=== PATIENT | female | born 1940 | race African-American/Black ===

== ENCOUNTER 2017-03-03 01:38 | Inpatient (IN) | payer BC, MEDICARE ==
[2017-03-03] VITALS (7 sets, daily range): BP systolic 90–132; BP diastolic 55–85
[~2017-03-03] VITALS: Ht 172.7 cm; Wt 135.6 kg
[~2017-03-03 01:38] MED LIST: ARMOUR THYROID120 MG PO; CLINDAMYCIN HC300 MG PO; COUMADIN10 MG PO; GLUCOPHAGE850 MG PO; K-DUR20 MEQ PO; LASIX40 MG PO; LYRICA150 MG PO; NUCYNTA50 MG PO; OXYCODONE HCL10 M1 PO; OXYCODONE HCL10 MG PO
[2017-03-03] MEDS ORDERED: DiphenhydrAMINE 50mg/ml Inj IVP ONE (02:00)
[2017-03-03] MEDS ORDERED: Morphine Sulfate 4mg/ml Inj IVP ONE ×2 (02:00→04:45)
[2017-03-03 02:30] LABS: BASOPHILS % (AUTO) 0.2 % (0.0-2.0); EOSINOPHILS % (AUTO) 0.1 % (0.0-3.0); MEAN CORPUSCULAR HEMOGLOBIN 24.5 PG (27.0-31.0); MEAN CORPUSCULAR VOLUME 82 FL (80-99); MONOCYTES % (AUTO) 5.4 % (1.0-10.0); NEUTROPHILS % (AUTO) 79.3 % (45.0-75.0); PLATELET COUNT 356 K/UL (150-450); RED CELL DISTRIBUTION WIDTH 16.7 % (11.6-14.8)
[2017-03-03 02:42] LABS: ALANINE AMINOTRANSFERASE 20 U/L (12-78); ALBUMIN/GLOBULIN RATIO 0.7 (1.0-2.7); ANION GAP 8 mmol/L (5-15); ASPARTATE AMINO TRANSFERASE 15 U/L (15-37); CALCIUM 10.4 MG/DL (8.5-10.1); CARBON DIOXIDE 29 MMOL/L (21-32); CHLORIDE 109 MMOL/L (98-107); CREATININE 1.1 MG/DL (0.55-1.30); INR 4.5 (0.9-1.1); LIPASE 130 U/L (73-393); POTASSIUM 4.2 MMOL/L (3.5-5.1); SODIUM 146 MMOL/L (136-145); TOTAL PROTEIN 6.8 G/DL (6.4-8.2)
--- NOTE | 2017-03-03 03:43 | Emergency Room Report ---
History of Present Illness General Chief Complaint: Abdominal Pain Source: Patient, Family Member Present Illness HPI 76-year-old female presents ED for evaluation. States that tonight she started having abdominal pain with vomiting and diarrhea. Started shortly after eating food. Pain is epigastric, sharp, 8/10, nonradiating. Also notes multiple episodes of vomiting with blood. Also complaining of diarrhea. Patient states she takes Coumadin. Denies any fevers or chills. Denies chest pain or shortness of breath. No aggravating relieving factors. Denies any other associated symptoms Allergies: Coded Allergies: ACETAMINOPHEN (Verified Allergy, Severe, ITCHING, 11/10/11) ASPIRIN (Verified Allergy, Severe, Rash, 11/10/11) DULOXETINE HCL (Verified Allergy, Severe, Rash, 11/10/11) HYDROCODONE BIT (Verified Allergy, Severe, ITCHING, 11/10/11) IBUPROFEN (Verified Allergy, Severe, SWELLING, 11/10/11) MORPHINE (Verified Allergy, Severe, ITCHING, 11/10/11) PENICILLINS (Verified Allergy, Severe, ANAPHYLAXIS, 11/10/11) PROPYLTHIOURACIL (Verified Allergy, Severe, Rash, 11/10/11) ISOSORBIDE (Verified Allergy, Intermediate, Rash, 05/10/12) COPIED FROM NONCODED SECTION "ISOSORDIL" LEVOFLOXACIN (Verified Allergy, Intermediate, Hives, 05/14/12) MOXIFLOXACIN (Verified Adverse Reaction, Severe, hives, hoarse voice, ) Hives right upper arm, hoarse voice upon first exposure, MD stopped immediately. Oral Benadryl administered, reversed reaction. LEVOTHYROXINE SOD *RETIRED-02/06/12 (Verified Adverse Reaction, TACHYCARDIA, 11/10/11) Uncoded Allergies: IV DYE, IODINE CONTAINING CONTRAST (Allergy, Severe, ANAPHYLAXIS, 11/10/11) Patient History Past Medical History: DM, HTN, asthma, COPD Past Surgical History: none Pertinent Family History: none Social History: Denies: smoking, alcohol use, drug use Last Menstrual Period: none Now: No Immunizations: UTD Reviewed Nursing Documentation: PMH: Agreed, PSxH: Agreed Nursing Documentation-PMH Hx Cardiac Problems: Yes - SUPERIOR VENA CAVA LIGATION Hx Hypertension: Yes Hx Asthma: Yes - ALLERGY/SEASONAL PER PATIENT Hx COPD: Yes - HX PE, MRSA Hx Diabetes: Yes - TAKING METFORMIN 850MG Q DAILY Hx Cancer: No Hx Gastrointestinal Problems: No Hx Peripheral Neuropathy: Yes Review of Systems All Other Systems: negative except mentioned in HPI Physical Exam Vital Signs Date Time Temp Pulse Resp B/P (MAP) Pulse Ox O2 Delivery O2 Flow Rate FiO2 03/03/17 01:40 98.4 110 18 127/85 92 Room Air Sp02 EP Interpretation: reviewed, normal General Appearance: alert, GCS 15, non-toxic, mild distress, obese Head: normocephalic, atraumatic Eyes: bilateral eye normal inspection, bilateral eye PERRL ENT: hearing grossly normal, normal pharynx, no angioedema, normal voice Neck: full range of motion, supple/symm/no masses Respiratory: chest non-tender, lungs clear, normal breath sounds, speaking full sentences Cardiovascular #1: regular rate, rhythm, no edema Cardiovascular #2: 2+ carotid (R), 2+ carotid (L), 2+ radial (R), 2+ radial (L) , 2+ dorsalis pedis (R), 2+ dorsalis pedis (L) Gastrointestinal: normal bowel sounds, soft, non-distended, no guarding, no rebound, tenderness - epigastric Rectal: deferred Genitourinary: normal inspection, no CVA tenderness Musculoskeletal: back normal, gait/station normal, normal range of motion, non- tender Neurologic: alert, oriented x3, responsive, motor strength/tone normal, sensory intact, speech normal Psychiatric: judgement/insight normal, memory normal, mood/affect normal, no suicidal/homicidal ideation Reflexes: 3+ bicep (R), 3+ bicep (L), 3+ tricep (R), 3+ tricep (L), 3+ knee (R) , 3+ knee (L) Skin: normal color, no rash, warm/dry, well hydrated Lymphatic: no adenopathy Medical Decision Making Diagnostic Impression: Primary Impression: Upper GI bleed ER Course Hospital Course 76-year-old F presents to ED with abdominal pain with diarrhea, vomiting blood Differential diagnoses include: UGIB, LGIB, hemorrhoids Clinical course Patient placed on stretcher. director business. After initial history and physical I ordered labs, IV fluids, pain meds, pepcid, zofran Labs - no leukocytosis, Hb/Hct stable. BUN elevated Case discussed with Dr. Blood and he agreed to accept the patient to his service for further care and support I feel this is a highly complex case requiring extensive working including EKG/ Rhythm strip, Xray/CT/US, Blood/urine lab work, repeat exams while in ED, and administration of strong opiates/narcotics for pain control, admission to hospital or close patient follow up. Diagnosis - UGIB Patient admitted to telemetry in serious condition Labs Test 03/03/17 02:00 White Blood Count 14.0 K/UL (4.8-10.8) Red Blood Count 4.40 M/UL (4.20-5.40) Hemoglobin 10.8 G/DL (12.0-16.0) Hematocrit 36.0 % (37.0-47.0) Mean Corpuscular Volume 82 FL (80-99) Mean Corpuscular Hemoglobin 24.5 PG (27.0-31.0) Mean Corpuscular Hemoglobin Concent 30.0 G/DL (32.0-36.0) Red Cell Distribution Width 16.7 % (11.6-14.8) Platelet Count 356 K/UL (150-450) Mean Platelet Volume 8.0 FL (6.5-10.1) Neutrophils (%) (Auto) 79.3 % (45.0-75.0) Lymphocytes (%) (Auto) 15.0 % (20.0-45.0) Monocytes (%) (Auto) 5.4 % (1.0-10.0) Eosinophils (%) (Auto) 0.1 % (0.0-3.0) Basophils (%) (Auto) 0.2 % (0.0-2.0) Prothrombin Time 48.0 SEC (9.30-11.50) Prothromb Time International Ratio 4.5 (0.9-1.1) Activated Partial Thromboplast Time 39 SEC (23-33) Sodium Level 146 MMOL/L (136-145) Potassium Level 4.2 MMOL/L (3.5-5.1) Chloride Level 109 MMOL/L (98-107) Carbon Dioxide Level 29 MMOL/L (21-32) Anion Gap 8 mmol/L (5-15) Blood Urea Nitrogen 27 mg/dL (7-18) Creatinine 1.1 MG/DL (0.55-1.30) Estimat Glomerular Filtration Rate mL/min (>60) Glucose Level 229 MG/DL (74-106) Calcium Level 10.4 MG/DL (8.5-10.1) Total Bilirubin 0.6 MG/DL (0.2-1.0) Aspartate Amino Transf (AST/SGOT) 15 U/L (15-37) Alanine Aminotransferase (ALT/SGPT) 20 U/L (12-78) Alkaline Phosphatase 69 U/L (46-116) Troponin I 0.005 ng/mL (0.000-0.056) Total Protein 6.8 G/DL (6.4-8.2) Albumin 2.9 G/DL (3.4-5.0) Globulin 3.9 g/dL Albumin/Globulin Ratio 0.7 (1.0-2.7) Lipase 130 U/L (73-393) Last Vital Signs Date Time Temp Pulse Resp B/P (MAP) Pulse Ox O2 Delivery O2 Flow Rate FiO2 03/03/17 01:40 98.4 110 18 127/85 92 Room Air Status: improved Disposition: ADMITTED INPATIENT Condition: Serious Referrals: NOT CHOSEN ROM/,REFERRING (PCP) DENISE ROJAS M.D. Mar 03, 2017 03:43
[2017-03-03 04:30] LABS: APPEARANCE,URINE CLEAR; KETONES,URINE 2+ (NEGATIVE); LEUKOCYTE ESTERASE ,URINE 1+ (NEGATIVE); NITRITE,URINE NEGATIVE (NEGATIVE); PH,URINE 5 (4.5-8.0); PROTEIN,URINE 1+ (NEGATIVE); UROBILINOGEN,URINE 4 MG/DL (0.0-1.0)
[2017-03-03 04:48] LABS: AMORPHOUS SEDIMENT,UR FEW /LPF; BACTERIA,URINE FEW /HPF; MUCUS,URINE FEW /LPF (NONE/OCC); SQUAMOUS EPITHELIAL CELL,UR FEW /LPF (NONE/OCC); WBC,URINE 0-2 /HPF (0 - 2)
--- NOTE | 2017-03-03 10:16 | General Progress Note ---
Assessment/Plan Assessment/Plan GI CONSULT Assessment - UGIB, small volume, possibly GERD or MWT - Abd pain, more on RUQ - coagulopathy/protein S/C deficiency - h/o multiple PE - Diarrhea - obesity - multiple drug allergies Rec - NPO - IVF - PPI - Stool eval - CT scan - pain control - antiemetics - hold coumadin - follow CBC Thank you Sammy Newby MD Subjective Allergies: Coded Allergies: ACETAMINOPHEN (Verified Allergy, Severe, ITCHING, 11/10/11) ASPIRIN (Verified Allergy, Severe, Rash, 11/10/11) DULOXETINE HCL (Verified Allergy, Severe, Rash, 11/10/11) HYDROCODONE BIT (Verified Allergy, Severe, ITCHING, 11/10/11) IBUPROFEN (Verified Allergy, Severe, SWELLING, 11/10/11) MORPHINE (Verified Allergy, Severe, ITCHING, 11/10/11) PENICILLINS (Verified Allergy, Severe, ANAPHYLAXIS, 11/10/11) PROPYLTHIOURACIL (Verified Allergy, Severe, Rash, 11/10/11) ISOSORBIDE (Verified Allergy, Intermediate, Rash, 05/10/12) COPIED FROM NONCODED SECTION "ISOSORDIL" LEVOFLOXACIN (Verified Allergy, Intermediate, Hives, 05/14/12) MOXIFLOXACIN (Verified Adverse Reaction, Severe, hives, hoarse voice, ) Hives right upper arm, hoarse voice upon first exposure, MD stopped immediately. Oral Benadryl administered, reversed reaction. LEVOTHYROXINE SOD *RETIRED-02/06/12 (Verified Adverse Reaction, TACHYCARDIA, 11/10/11) Uncoded Allergies: IV DYE, IODINE CONTAINING CONTRAST (Allergy, Severe, ANAPHYLAXIS, 11/10/11) Objective Last 24 Hour Vital Signs Date Time Temp Pulse Resp B/P (MAP) Pulse Ox O2 Delivery O2 Flow Rate FiO2 03/03/17 08:00 98.4 97 21 124/58 96 Nasal Cannula 2.0 03/03/17 08:00 97.2 84 18 132/70 92 Nasal Cannula 2.0 03/03/17 05:50 98.4 97 21 124/58 92 Nasal Cannula 2.0 03/03/17 03:50 98.4 95 17 109/55 90 Nasal Cannula 2.0 03/03/17 01:50 98.4 110 18 127/85 92 Room Air 03/03/17 01:40 98.4 110 18 127/85 92 Room Air Intake and Output 03/03/17 03/04/17 19:00 07:00 # Voids 1 Laboratory Tests 03/03/17 02:00: White Blood Count 14.0H, Red Blood Count 4.40, Hemoglobin 10.8L, Hematocrit 36.0L, Mean Corpuscular Volume 82, Mean Corpuscular Hemoglobin 24.5L, Mean Corpuscular Hemoglobin Concent 30.0L, Red Cell Distribution Width 16.7H, Platelet Count 356, Mean Platelet Volume 8.0, Neutrophils (%) (Auto) 79.3H, Lymphocytes (%) (Auto) 15.0L, Monocytes (%) (Auto) 5.4, Eosinophils (%) (Auto) 0.1, Basophils (%) (Auto) 0.2, Prothrombin Time 48.0H, Prothromb Time International Ratio 4.5H, Activated Partial Thromboplast Time 39H, Sodium Level 146H, Potassium Level 4.2, Chloride Level 109H, Carbon Dioxide Level 29, Anion Gap 8, Blood Urea Nitrogen 27H, Creatinine 1.1, Estimat Glomerular Filtration Rate , Glucose Level 229H, Calcium Level 10.4H, Total Bilirubin 0.6, Aspartate Amino Transf (AST/SGOT) 15, Alanine Aminotransferase (ALT/SGPT) 20, Alkaline Phosphatase 69, Troponin I 0.005, Total Protein 6.8, Albumin 2.9L, Globulin 3.9 , Albumin/Globulin Ratio 0.7L, Lipase 130 03/03/17 04:10: Urine Color Yellow, Urine Appearance Clear, Urine pH 5, Urine Specific Gray 1.015, Urine Protein 1+H, Urine Glucose (UA) Negative, Urine Ketones 2+H, Urine Occult Blood 2+H, Urine Nitrite Negative, Urine Bilirubin Negative, Urine Urobilinogen 4H, Urine Leukocyte Esterase 1+H, Urine RBC 2-4H, Urine WBC 0-2, Urine Squamous Epithelial Cells Few, Urine Amorphous Sediment FewH, Urine Bacteria Few, Urine Mucus FewH Height (Feet): 5 Height (Inches): 8.00 Weight (Pounds): 299 SAMMY NEWBY Mar 03, 2017 10:16
[2017-03-03] MEDS ORDERED: oxyCODONE 5mg IR tab ORAL PRN (10:45)
[2017-03-03] MEDS: Pantoprazole Inj IVP SCH (10:55)
[2017-03-03] MEDS: HYDROmorphone 1mg/ml Carpuject IVP PRN ×2 (11:26→14:15)
[2017-03-03] MEDS ORDERED: Potassium Chloride 10 MEQ in D5 1/2NS 1,000 ML IV SCH (11:30)
[2017-03-03] MEDS ORDERED: Albuterol 90mcg Inhaler 8gm INH PRN (11:30)
[2017-03-03] MEDS: D5 1/2NS w/KCL 10meq 1,000 ML IV SCH ×2 (13:18→19:19)
[2017-03-03] MEDS ORDERED: Phytonadione 10 mg/mL 1ml amp SUBQ ONE (14:00)
[2017-03-03 14:15] LABS: BASOPHILS % (AUTO) 0.2 % (0.0-2.0); EOSINOPHILS % (AUTO) 0.3 % (0.0-3.0); LYMPHOCYTES % (AUTO) 18.3 % (20.0-45.0); MEAN CORPUSCULAR HGB CONC 30.5 G/DL (32.0-36.0); MEAN CORPUSCULAR VOLUME 82 FL (80-99); MEAN PLATELET VOLUME 7.8 FL (6.5-10.1); MONOCYTES % (AUTO) 8.7 % (1.0-10.0); NEUTROPHILS % (AUTO) 72.5 % (45.0-75.0); PLATELET COUNT 248 K/UL (150-450); RED BLOOD COUNT 3.74 M/UL (4.20-5.40); RED CELL DISTRIBUTION WIDTH 16.9 % (11.6-14.8); WHITE BLOOD COUNT 9.8 K/UL (4.8-10.8)
[2017-03-03 14:31] LABS: INR 4.2 (0.9-1.1); PROTHROMBIN TIME 44.5 SEC (9.30-11.50)
[2017-03-03] MEDS: Advair 100/50 Inhaler - 14 dose INH SCH (15:18)
[2017-03-03] MEDS ORDERED: Montelukast 10mg tablet ORAL SCH (16:30)
--- NOTE | 2017-03-03 17:13 | Cardiology Report ---
APPROVED REPORT EKG Measurement Heart [id number] Normal sinus rhythm Left axis deviation Inferior infarct, age undetermined Anterior infarct, age undetermined Abnormal ECG
[2017-03-03] MEDS ORDERED: LORazepam 20 MG in NS 90 ML IV PRN (18:00)
[2017-03-03] MEDS ORDERED: LORazepam Inj 2mg/ml 1ml IVP PRN (18:15)
[2017-03-03] MEDS ORDERED: Hydromorphone 0.5mg/0.5ml inj IVP PRN (18:30)
[2017-03-04] VITALS (10 sets, daily range): BP systolic 73–159; BP diastolic 41–78
[2017-03-04] MEDS: D5 1/2NS w/KCL 10meq 1,000 ML IV SCH ×2 (03:15→11:15)
--- NOTE | 2017-03-04 08:36 | Consultation ---
History of Present Illness General Date patient seen: Mar 04, 2017 Chief Complaint: Abdominal Pain Present Illness Allergies: Coded Allergies: ACETAMINOPHEN (Verified Allergy, Severe, ITCHING, 11/10/11) ASPIRIN (Verified Allergy, Severe, Rash, 11/10/11) DULOXETINE HCL (Verified Allergy, Severe, Rash, 11/10/11) HYDROCODONE BIT (Verified Allergy, Severe, ITCHING, 11/10/11) IBUPROFEN (Verified Allergy, Severe, SWELLING, 11/10/11) MORPHINE (Verified Allergy, Severe, ITCHING, 11/10/11) PENICILLINS (Verified Allergy, Severe, ANAPHYLAXIS, 11/10/11) PROPYLTHIOURACIL (Verified Allergy, Severe, Rash, 11/10/11) ISOSORBIDE (Verified Allergy, Intermediate, Rash, 05/10/12) COPIED FROM NONCODED SECTION "ISOSORDIL" LEVOFLOXACIN (Verified Allergy, Intermediate, Hives, 05/14/12) MOXIFLOXACIN (Verified Adverse Reaction, Severe, hives, hoarse voice, ) Hives right upper arm, hoarse voice upon first exposure, MD stopped immediately. Oral Benadryl administered, reversed reaction. LEVOTHYROXINE SOD *RETIRED-02/06/12 (Verified Adverse Reaction, TACHYCARDIA, 11/10/11) Uncoded Allergies: IV DYE, IODINE CONTAINING CONTRAST (Allergy, Severe, ANAPHYLAXIS, 11/10/11) Medication History Scheduled Clindamycin Hcl (Clindamycin Hcl), 300 MG PO TID, (Reported) Furosemide* (Lasix*), 40 MG PO DAILY, (Reported) Metformin Hcl* (Glucophage*), 850 MG PO DAILY, (Reported) Oxycodone Hcl* (Oxycodone Hcl*), 5 MG PO PRN, (Reported) Oxycodone Hcl* (Oxycodone Hcl*), 10 MG PO PRN, (Reported) Potassium Chloride (Klor-Con M20), 40 MEQ PO DAILY, (Reported) Pregabalin (Lyrica), 150 MG PO Q6HR, (Reported) Tapentadol Hcl (Nucynta), 50 MG PO Q6HR, (Reported) Thyroid,Pork (Coggon Thyroid), 120 MG PO DAILY, (Reported) Warfarin Sod* (Coumadin*), 10 MG PO DAILY, (Reported) Patient History Healthcare decision maker Resuscitation status Advanced Directive on File Physical Exam Last 24 Hour Vital Signs Date Time Temp Pulse Resp B/P (MAP) Pulse Ox O2 Delivery O2 Flow Rate FiO2 03/04/17 02:40 98.2 03/04/17 00:00 97.7 106 20 159/71 96 Room Air 2.0 03/03/17 20:00 97.9 103 90/66 95 Simple Mask 3.0 03/03/17 20:00 104 03/03/17 16:00 108 03/03/17 16:00 98.4 108 20 110/65 90 Room Air 03/03/17 12:00 96.0 95 20 132/61 93 Room Air 03/03/17 12:00 97 Laboratory Tests Test 03/03/17 14:00 White Blood Count 9.8 K/UL (4.8-10.8) Red Blood Count 3.74 M/UL (4.20-5.40) L Hemoglobin 9.3 G/DL (12.0-16.0) L Hematocrit 30.7 % (37.0-47.0) L Mean Corpuscular Volume 82 FL (80-99) Mean Corpuscular Hemoglobin 25.0 PG (27.0-31.0) L Mean Corpuscular Hemoglobin Concent 30.5 G/DL (32.0-36.0) L Red Cell Distribution Width 16.9 % (11.6-14.8) H Platelet Count 248 K/UL (150-450) Mean Platelet Volume 7.8 FL (6.5-10.1) Neutrophils (%) (Auto) 72.5 % (45.0-75.0) Lymphocytes (%) (Auto) 18.3 % (20.0-45.0) L Monocytes (%) (Auto) 8.7 % (1.0-10.0) Eosinophils (%) (Auto) 0.3 % (0.0-3.0) Basophils (%) (Auto) 0.2 % (0.0-2.0) Prothrombin Time 44.5 SEC (9.30-11.50) H Prothromb Time International Ratio 4.2 (0.9-1.1) H Height (Feet): 5 Height (Inches): 8.00 Weight (Pounds): 299 Medications Current Medications Medications (Trade) Dose Ordered Sig/Celsa Route PRN Reason Start Time Stop Time Status Last Admin Dose Admin Albuterol Sulfate (Proventil MDI) 2 puff Q4H PRN INH Shortness of Breath 03/03/17 11:30 04/02/17 11:29 Dextrose/ Electrolytes 1,000 ml @ 125 mls/hr Q8H IV 03/03/17 11:15 04/02/17 11:14 03/03/17 19:19 Hydromorphone HCl (Dilaudid) 1 mg Q4H PRN IVP For Pain 1-3 03/03/17 18:30 03/10/17 18:29 Hydromorphone HCl (Dilaudid) 2 mg Q6H PRN IVP for moderate pain 03/03/17 13:45 03/10/17 13:44 03/04/17 02:10 Hydromorphone HCl (Dilaudid) 3 mg Q6H PRN IVP For Pain 7-10 03/03/17 18:15 03/10/17 18:14 Lorazepam (Ativan 2mg/ml 1ml) 1 mg Q8H PRN IVP For Anxiety 03/03/17 18:15 03/10/17 18:14 03/03/17 18:51 Ondansetron HCl (Zofran) 4 mg Q6H PRN IVP Nausea & Vomiting 03/03/17 10:30 04/02/17 10:29 03/03/17 23:42 Pantoprazole (Protonix) 40 mg DAILY IVP 03/03/17 10:30 04/02/17 10:29 03/03/17 10:55 Salmeterol Xinafoate/ Fluticasone (Advair 100/50 Diskus) 2 puffs TWICE A DAY INH 03/03/17 18:00 04/02/17 17:59 Assessment/Plan Assessment/Plan (1) Intractable abdominal pain (2) GI bleed (3) Multiple Joint pain (4) Multiple Joint OA (5) Fibromyalgia seen dictated BRENT BROWN Mar 04, 2017 08:36
[2017-03-04] MEDS ORDERED: Hydromorphone 0.5mg/0.5ml inj IVP PRN ×3 (08:45→22:00)
[2017-03-04 08:55] LABS: MEAN CORPUSCULAR HEMOGLOBIN 25.1 PG (27.0-31.0); MEAN CORPUSCULAR HGB CONC 30.7 G/DL (32.0-36.0); MEAN CORPUSCULAR VOLUME 82 FL (80-99); MEAN PLATELET VOLUME 7.8 FL (6.5-10.1); PLATELET COUNT 311 K/UL (150-450); RED BLOOD COUNT 3.03 M/UL (4.20-5.40); RED CELL DISTRIBUTION WIDTH 17.3 % (11.6-14.8); WHITE BLOOD COUNT 15.8 K/UL (4.8-10.8)
[2017-03-04] MEDS ORDERED: Furosemide 40mg tab ORAL SCH (09:00)
[2017-03-04] MEDS: Pantoprazole Inj IVP SCH (09:00)
[2017-03-04] MEDS: Advair 100/50 Inhaler - 14 dose INH SCH ×2 (09:00→18:00)
[2017-03-04 09:05] LABS: INR 2.1 (0.9-1.1); PROTHROMBIN TIME 21.8 SEC (9.30-11.50)
[2017-03-04 09:18] LABS: ALANINE AMINOTRANSFERASE 18 U/L (12-78); ALBUMIN/GLOBULIN RATIO 0.8 (1.0-2.7); ANION GAP 7 mmol/L (5-15); ASPARTATE AMINO TRANSFERASE 17 U/L (15-37); CARBON DIOXIDE 26 MMOL/L (21-32); CHLORIDE 116 MMOL/L (98-107); CHOLESTEROL 118 MG/DL (< 200); CHOLESTEROL/HDL RATIO 4.7 (3.3-4.4); CREATININE 1.1 MG/DL (0.55-1.30); LACTATE DEHYDROGENASE 189 U/L (81-234); POTASSIUM 4.5 MMOL/L (3.5-5.1); SODIUM 149 MMOL/L (136-145); TOTAL PROTEIN 6.3 G/DL (6.4-8.2)
[2017-03-04 10:23] LABS: ANISOCYTOSIS 1+; BAND NEUTROPHILS % (MANUAL) 0 % (0-8); BASOPHILS % (MANUAL) 0 % (0-2); EOSINOPHILS % (MANUAL) 0 % (0-3); HYPOCHROMASIA 1+; LYMPHOCYTES % (MANUAL) 12 % (20-45); NEUTROPHILS % (MANUAL) 83 % (45-75); PLATELET ESTIMATE ADEQUATE; PLATELET MORPHOLOGY NORMAL; TOTAL CELLS COUNTED 100
--- NOTE | 2017-03-04 10:31 | History and Physical Report ---
DATE OF ADMISSION: 03/03/2017 SOURCE OF INFORMATION: Patient and EMR. HISTORY OF PRESENT ILLNESS: The patient is a 76-year-old, female, presented with the protracted nausea and vomitus for the day before the admission. The patient reported that the contents of the vomitus included red fresh blood. The patient also reportedly complaining of very dark diarrhea since yesterday associated with epigastric abdominal pain. The patient denies any loss of consciousness. The patient denies any fever or chills. PAST MEDICAL HISTORY: Chronic pain, protein C and S deficiency, GERD, and multiple joint osteoarthritis. ALLERGIES: Acetaminophen, aspirin, duloxetine, hydrocodone, ibuprofen, isosorbide, and levofloxacin. HOME MEDICATIONS: Reviewed as follows including clindamycin, Lasix, oxycodone, potassium chloride, Lyrica, . FAMILY HISTORY: Reviewed and noncontributory. SOCIAL HISTORY: The patient reported that she lives with her granddaughter/daughter. Denies history of illicit drug abuse or smoking or alcohol abuse. PHYSICAL EXAMINATION: VITAL SIGNS: Blood pressure 120/80, temperature 98.2, pulse rate 110, and pulse oximetry 98% on 2 liters of oxygen. HEAD AND NECK: Atraumatic and normocephalic. CHEST: Clear to auscultation. HEART: S1 and S2. Regular rate and rhythm. ABDOMEN: Morbidly obese. No tenderness. MUSCULOSKELETAL: No gross focal or motor deficits. Positive for hypertrophy of the joints. NEUROLOGIC: The patient is awake, alert, and oriented x3. LABORATORY DATA: Labs dated 03/03/2017 shows WBC 14, hemoglobin 10.8, and platelets 356. Sodium 146, potassium 4.2, BUN 27, and creatinine 1.1. INR 4.45. Urinalysis shows 2+ occult blood. ASSESSMENT: 1. Upper gastrointestinal bleeding. 2. Hypercoagulation state. 3. Protein C and protein S deficiency. 4. Multiple joint osteoarthritis. 5. Chronic pain, fibromyalgia. 6. Anemia, baseline unknown. 7. Leukocytosis with no evidence of active acute infection. 8. Hematuria. 9. Gastrointestinal and deep vein thrombosis prophylaxes. PLAN OF CARE: Withhold on the anticoagulants. Start the IV fluids. We will continue with the IV PPIs b.i.d. Dr. Timmons and Dr. Tyson, GI and Hematology, have been consulted. Samantha Blood M.D. DR: RIVER JOB#: [id number] CC:
--- NOTE | 2017-03-04 10:31 | Consultation ---
DATE OF CONSULTATION: 03/03/2017 GASTROENTEROLOGY CONSULTATION CHIEF COMPLAINT: I was asked to see this patient by Dr. Samantha Blood for evaluation of upper gastrointestinal bleeding. HISTORY OF PRESENT ILLNESS: The patient is a pleasant 76-year-old woman with history of protein S or C deficiency, who comes in with abdominal pain, vomiting, and a small episode of hematemesis. The patient states that she was well until the day prior to admission where she had diffuse abdominal pain. She had multiple episodes of nausea and vomiting. Initially, the vomiting was not bloody, but at times there was some blood, perhaps about 2 tablespoons. Then, the vomiting became again nonbloody and then bloody. She had some brown colored diarrhea. She is on longstanding Coumadin for history of coagulopathy and she has had over 30 pulmonary emboli. The patient had some surgeries to reduce her future pulmonary embolus risks. She was noted to have melena. Her last endoscopy was may be over 10 years ago and her last colonoscopy was perhaps more than 4 years ago. PAST MEDICAL HISTORY: History of fibromyalgia, protein S or C deficiency, coagulopathy, history of hypothyroidism, history of peripheral neuropathy, hypertension, obesity, COPD, and history of pulmonary emboli. PAST SURGICAL HISTORY: Status post inferior vena cava ligation, status post cholecystectomy, status post hysterectomy. MEDICATIONS: See the chart list for details. SOCIAL HISTORY: The patient stopped smoking 20 years ago. She does not drink. FAMILY HISTORY: Unavailable since the patient is a foster child. REVIEW OF SYSTEMS: Otherwise negative. PHYSICAL EXAMINATION: GENERAL: This is a pleasant, elderly woman, seen in her room. HEENT: Normocephalic and atraumatic. Sclerae anicteric. Oropharynx clear. NECK: Supple. CHEST: Clear to auscultation. CARDIOVASCULAR: Revealed regular rate. ABDOMEN: Soft, obese. Good bowel sounds. Old scars visible, which are well healed. Some mild epigastric tenderness to palpation. EXTREMITIES: Revealed no edema. LABORATORY DATA: Noted. ASSESSMENT: This patient presents with abdominal tenderness of unclear etiology. She does have some distress, therefore, a stat CT scan of the abdomen and pelvis will be done to evaluate the upper gastrointestinal tract. Differential diagnosis would include pancreatitis, diverticulitis, possible ischemic bowel, and colitis. In the meantime, she should be kept NPO with IV fluids running. She also had some degree of upper gastrointestinal bleeding, although the amount of bleeding appears to be small. She has no melena and she estimates the volume of blood to only be 2 tablespoons or so amongst with nonbloody emesis. I suspect that she had vomited multiple times and suffered from a [place] tear with subsequent some small amount of bleeding. The patient will be observed closely and her Coumadin was held to allow the INR to come down. If vitamin K can be done to reverse the coagulopathy quite a bit faster. We will arrange for an endoscopy to evaluate the upper gastrointestinal tract. RECOMMENDATIONS: 1. NPO except medications. 2. IV fluids. 3. Proton pump inhibitor. 4. CT scan of abdomen and pelvis. 5. Hold Coumadin and consider vitamin K to speed up reversal if necessary. Thank you for asking me to participate in care of this patient. Sammy Newby M.D. DR: Merrill JOB#: [id number] CC: LIYA
--- NOTE | 2017-03-04 10:45 | Consultation ---
DATE OF CONSULTATION: 03/03/2017 HEMATOLOGY/ONCOLOGY CONSULTATION CONSULTING PHYSICIAN: Skyler Tyson M.D. REQUESTING PHYSICIAN: Samantha Blood M.D. REASON FOR CONSULTATION: GI bleed and hypercoagulable state. CURRENT COMPLAINT/HISTORY OF PRESENT ILLNESS: Dear Dr. Blood: Today, I had an opportunity to see one of your patients, Armand Ford, who as you well aware is a 76-year-old delightful female with past medical history remarkable for hypercoagulable state, anticoagulation with Coumadin, and history of pulmonary emboli. The patient ended up to have nausea and vomiting with blood. The patient also complained diarrhea. During evaluation, it was found that the patient developed significant anemia. The patient has a history of diabetes mellitus, hypertension, asthma, and COPD. My service was called to handle the issue of hypercoagulable state, anemia, and history of GI bleed. PAST MEDICAL HISTORY: 1. hypercoagulable state. 2. Anticoagulation with Coumadin. 3. Protein deficiency. 4. Hypertension. 5. Diabetes mellitus. 6. History of peripheral neuropathy. MEDICATIONS: 1. Dilaudid. 2. Ativan. 3. Advair 4. Dilantin. 5. Dextrose. 6. Protonix. 7. Zofran. ALLERGIES: No known drug allergies. FAMILY HISTORY: Noncontributory. SOCIAL HISTORY: No history of smoking. No history of alcohol abuse. No history of illicit drug use. REVIEW OF SYSTEMS: GENERAL: The patient is not in any significant distress, but was chronically ill. PHYSICAL EXAMINATION: VITAL SIGNS: T-max is 97 degrees, respiratory rate 20, heart rate 80, and blood pressure 130/80. HEENT: Head is normocephalic and atraumatic. NECK: Supple. No thyroid enlargement. No lymphadenopathy. LUNGS: Decreased breath sounds bilaterally with a few rhonchi in the base. HEART: S1 and S2 regular. ABDOMEN: Soft and benign. No organomegaly present. Bowel sounds are present. EXTREMITIES: No cyanosis, clubbing, or edema. LABORATORY DATA: WBC is 9.8, hemoglobin 9.3, hematocrit 30.7, and platelets 246,000. Coagulation shows INR 4.2, PTT 44.5. Chemistry showed creatinine 1.1. IMPRESSION: 1. Leukocytosis with left shift. 2. Anemia of chronic disease. 3. Anemia, secondary to gastrointestinal bleed. 4. Upper gastrointestinal bleed. 5. Lower gastrointestinal bleed. 6. Coronary artery disease. 7. Hypertension. 8. Diabetes mellitus. 9. Osteoarthritis/degenerative joint disease. 10. Hypercoagulable state. 11. History of protein deficiency. 12. History of pulmonary emboli. 13. Peripheral neuropathy. 14. Seasonal asthma. 15. Superior vena cava ligation. 16. Malnutrition. 17. Failure to thrive. RECOMMENDATIONS: 1. Watch count. 2. Watch coagulopathy. 3. PRBC transfusion p.r.n. based. 4. Coumadin to be dosed by pharmacy with target INR between 2.0 and 3.0. 5. Skin care. 6. Nutrition. 7. Respiratory treatment. 8. Close followup. 9. Discussed with staff. 10. Continue current treatment. Skyler Tyson MD DR: BRITTNEY/MIRIAM JOB#: [id number] CC:
--- NOTE | 2017-03-04 11:14 | General Progress Note ---
Assessment/Plan Status: stable Assessment/Plan 1. Upper gastrointestinal bleeding. 2. Hypercoagulation state. 3. Protein C and protein S deficiency. 4. Multiple joint osteoarthritis. 5. Chronic pain, fibromyalgia. 6. Anemia, baseline unknown. 7. Leukocytosis with no evidence of active acute infection. 8. Hematuria. 9. Gastrointestinal and deep vein thrombosis prophylaxes. Plan; consult ID. no antibiotic at this time proceed with Blood transfusion reported drop in BP. will transfer to ICU Subjective ROS Limited/Unobtainable: Yes - in pain Allergies: Coded Allergies: ACETAMINOPHEN (Verified Allergy, Severe, ITCHING, 11/10/11) ASPIRIN (Verified Allergy, Severe, Rash, 11/10/11) DULOXETINE HCL (Verified Allergy, Severe, Rash, 11/10/11) HYDROCODONE BIT (Verified Allergy, Severe, ITCHING, 11/10/11) IBUPROFEN (Verified Allergy, Severe, SWELLING, 11/10/11) MORPHINE (Verified Allergy, Severe, ITCHING, 11/10/11) PENICILLINS (Verified Allergy, Severe, ANAPHYLAXIS, 11/10/11) PROPYLTHIOURACIL (Verified Allergy, Severe, Rash, 11/10/11) ISOSORBIDE (Verified Allergy, Intermediate, Rash, 05/10/12) COPIED FROM NONCODED SECTION "ISOSORDIL" LEVOFLOXACIN (Verified Allergy, Intermediate, Hives, 05/14/12) MOXIFLOXACIN (Verified Adverse Reaction, Severe, hives, hoarse voice, ) Hives right upper arm, hoarse voice upon first exposure, MD stopped immediately. Oral Benadryl administered, reversed reaction. LEVOTHYROXINE SOD *RETIRED-02/06/12 (Verified Adverse Reaction, TACHYCARDIA, 11/10/11) Uncoded Allergies: IV DYE, IODINE CONTAINING CONTRAST (Allergy, Severe, ANAPHYLAXIS, 11/10/11) Objective Last 24 Hour Vital Signs Date Time Temp Pulse Resp B/P (MAP) Pulse Ox O2 Delivery O2 Flow Rate FiO2 03/04/17 09:22 Room Air 21 03/04/17 09:19 Room Air 21 03/04/17 08:30 98.4 115 22 114/56 92 Nasal Cannula 2.0 03/04/17 02:40 98.2 03/04/17 02:20 104 03/04/17 00:00 97.7 106 20 159/71 96 Room Air 2.0 03/03/17 21:00 100 03/03/17 20:00 97.9 103 90/66 95 Simple Mask 3.0 03/03/17 20:00 104 03/03/17 16:00 108 03/03/17 16:00 98.4 108 20 110/65 90 Room Air 03/03/17 12:00 96.0 95 20 132/61 93 Room Air 03/03/17 12:00 97 Laboratory Tests 03/03/17 14:00: White Blood Count 9.8, Red Blood Count 3.74L, Hemoglobin 9.3L, Hematocrit 30.7L , Mean Corpuscular Volume 82, Mean Corpuscular Hemoglobin 25.0L, Mean Corpuscular Hemoglobin Concent 30.5L, Red Cell Distribution Width 16.9H, Platelet Count 248, Mean Platelet Volume 7.8, Neutrophils (%) (Auto) 72.5, Lymphocytes (%) (Auto) 18.3L, Monocytes (%) (Auto) 8.7, Eosinophils (%) (Auto) 0.3, Basophils (%) (Auto) 0.2, Prothrombin Time 44.5H, Prothromb Time International Ratio 4.2H 03/04/17 07:30: White Blood Count 15.8#H, Red Blood Count 3.03L, Hemoglobin 7.6L, Hematocrit 24.8L, Mean Corpuscular Volume 82, Mean Corpuscular Hemoglobin 25.1L, Mean Corpuscular Hemoglobin Concent 30.7L, Red Cell Distribution Width 17.3H, Platelet Count 311, Mean Platelet Volume 7.8, Neutrophils (%) (Auto) , Lymphocytes (%) (Auto) , Monocytes (%) (Auto) , Eosinophils (%) (Auto) , Basophils (%) (Auto) , Prothrombin Time 21.8H, Prothromb Time International Ratio 2.1H, Differential Total Cells Counted 100, Neutrophils % (Manual) 83H, Lymphocytes % (Manual) 12L, Monocytes % (Manual) 5, Eosinophils % (Manual) 0, Basophils % (Manual) 0, Band Neutrophils 0, Platelet Estimate Adequate, Platelet Morphology Normal, Hypochromasia 1+, Anisocytosis 1+, D-Dimer < 0.19, Lupus Anticoagulant [Pending], Lupus Anticoagulant PTT Baseline [Pending], Lupus Anticoag DRVVT Screen Ratio [Pending], DRVVT Confirmation Interpretation [ Pending], Hexagonal Phase Comment [Pending], Protein C Activity [Pending], Protein S Activity [Pending], Factor V Mutation [Pending], Sodium Level 149H, Potassium Level 4.5, Chloride Level 116H, Carbon Dioxide Level 26, Anion Gap 7, Blood Urea Nitrogen 54H, Creatinine 1.1, Estimat Glomerular Filtration Rate , Glucose Level 176H, Hemoglobin A1c 9.1H, Calcium Level 10.0, Total Bilirubin 0.6 , Aspartate Amino Transf (AST/SGOT) 17, Alanine Aminotransferase (ALT/SGPT) 18, Alkaline Phosphatase 53, Lactate Dehydrogenase 189, Troponin I 0.013, Total Protein 6.3L, Albumin 2.8L, Globulin 3.5, Albumin/Globulin Ratio 0.8L, Triglycerides Level 157, Cholesterol Level 118, LDL Cholesterol 76, HDL Cholesterol 25L, Cholesterol/HDL Ratio 4.7H, CA 125 Antigen [Pending] Height (Feet): 5 Height (Inches): 8.00 Weight (Pounds): 299 General Appearance: lethargic, confused EENT: PERRL/EOMI Neck: supple Cardiovascular: tachycardia Respiratory/Chest: lungs clear Abdomen: soft Extremities: other - pain. all over. difficult to locate Neurologic: metal expediter II-XII grossly normal Samantha Blood MD Mar 04, 2017 11:14
[2017-03-04] MEDS ORDERED: PANTOPRAZOLE IV SCH ×3 (13:00→22:30)
[2017-03-04] MEDS ORDERED: D5W IV SCH ×3 (13:00→22:30)
--- NOTE | 2017-03-04 13:27 | GI Progress Note ---
Assessment/Plan Problems: (1) Encephalopathy acute ICD Codes: G93.40 - Encephalopathy, unspecified SNOMED: 5985068 (2) Anemia due to acute blood loss ICD Codes: D62 - Acute posthemorrhagic anemia SNOMED: 090685212 (3) Upper GI bleed ICD Codes: K92.2 - Gastrointestinal hemorrhage, unspecified SNOMED: 28663865 Status: unchanged Status Narrative Discussed with Dr. Timmons. Assessment/Plan Assessment - UGIB, small volume, possibly GERD or MWT - Abd pain, more on RUQ - coagulopathy/protein S/C deficiency - h/o multiple PE - Diarrhea - obesity - multiple drug allergies Rec EGD scheduled for tomorrow, hold coumadin. - NPO + IVFs start protonix gtt head CT for AMS anemia work up monitor H&H, prn transfusions (2 units pending today) bowel regime ppi fu labs The patient was seen and examined at bedside and all new and available data was reviewed in the patients chart. I agree with the above findings, impression and plan. (Patient seen earlier today. Signature stamp does not reflect patient encounter time.). - Mariah Timmons MD Subjective Subjective limited, AMS Objective Last 24 Hour Vital Signs Date Time Temp Pulse Resp B/P (MAP) Pulse Ox O2 Delivery O2 Flow Rate FiO2 03/04/17 13:20 73/46 03/04/17 13:17 78/41 03/04/17 12:38 98.0 113 22 126/65 92 Room Air 03/04/17 09:22 Room Air 21 03/04/17 09:19 Room Air 21 03/04/17 08:30 98.4 115 22 114/56 92 Nasal Cannula 2.0 03/04/17 02:40 98.2 03/04/17 02:20 104 03/04/17 00:00 97.7 106 20 159/71 96 Room Air 2.0 03/03/17 21:00 100 03/03/17 20:00 97.9 103 90/66 95 Simple Mask 3.0 03/03/17 20:00 104 03/03/17 16:00 108 03/03/17 16:00 98.4 108 20 110/65 90 Room Air Laboratory Tests Test 03/03/17 14:00 03/04/17 07:30 White Blood Count 9.8 K/UL (4.8-10.8) 15.8 K/UL (4.8-10.8) #H Red Blood Count 3.74 M/UL (4.20-5.40) L 3.03 M/UL (4.20-5.40) L Hemoglobin 9.3 G/DL (12.0-16.0) L 7.6 G/DL (12.0-16.0) L Hematocrit 30.7 % (37.0-47.0) L 24.8 % (37.0-47.0) L Mean Corpuscular Volume 82 FL (80-99) 82 FL (80-99) Mean Corpuscular Hemoglobin 25.0 PG (27.0-31.0) L 25.1 PG (27.0-31.0) L Mean Corpuscular Hemoglobin Concent 30.5 G/DL (32.0-36.0) L 30.7 G/DL (32.0-36.0) L Red Cell Distribution Width 16.9 % (11.6-14.8) H 17.3 % (11.6-14.8) H Platelet Count 248 K/UL (150-450) 311 K/UL (150-450) Mean Platelet Volume 7.8 FL (6.5-10.1) 7.8 FL (6.5-10.1) Neutrophils (%) (Auto) 72.5 % (45.0-75.0) % (45.0-75.0) Lymphocytes (%) (Auto) 18.3 % (20.0-45.0) L % (20.0-45.0) Monocytes (%) (Auto) 8.7 % (1.0-10.0) % (1.0-10.0) Eosinophils (%) (Auto) 0.3 % (0.0-3.0) % (0.0-3.0) Basophils (%) (Auto) 0.2 % (0.0-2.0) % (0.0-2.0) Prothrombin Time 44.5 SEC (9.30-11.50) H 21.8 SEC (9.30-11.50) H Prothromb Time International Ratio 4.2 (0.9-1.1) H 2.1 (0.9-1.1) H Differential Total Cells Counted 100 Neutrophils % (Manual) 83 % (45-75) H Lymphocytes % (Manual) 12 % (20-45) L Monocytes % (Manual) 5 % (1-10) Eosinophils % (Manual) 0 % (0-3) Basophils % (Manual) 0 % (0-2) Band Neutrophils 0 % (0-8) Platelet Estimate Adequate Platelet Morphology Normal Hypochromasia 1+ Anisocytosis 1+ D-Dimer < 0.19 mg/L FEU Lupus Anticoagulant Pending Lupus Anticoagulant PTT Baseline Pending Lupus Anticoag DRVVT Screen Ratio Pending DRVVT Confirmation Interpretation Pending Hexagonal Phase Comment Pending Protein C Activity Pending Protein S Activity Pending Factor V Mutation Pending Sodium Level 149 MMOL/L (136-145) H Potassium Level 4.5 MMOL/L (3.5-5.1) Chloride Level 116 MMOL/L (98-107) H Carbon Dioxide Level 26 MMOL/L (21-32) Anion Gap 7 mmol/L (5-15) Blood Urea Nitrogen 54 mg/dL (7-18) H Creatinine 1.1 MG/DL (0.55-1.30) Estimat Glomerular Filtration Rate mL/min (>60) Glucose Level 176 MG/DL (74-106) H Hemoglobin A1c 9.1 % (4.3-6.0) H Calcium Level 10.0 MG/DL (8.5-10.1) Total Bilirubin 0.6 MG/DL (0.2-1.0) Aspartate Amino Transf (AST/SGOT) 17 U/L (15-37) Alanine Aminotransferase (ALT/SGPT) 18 U/L (12-78) Alkaline Phosphatase 53 U/L (46-116) Lactate Dehydrogenase 189 U/L (81-234) Troponin I 0.013 ng/mL (0.000-0.056) Total Protein 6.3 G/DL (6.4-8.2) L Albumin 2.8 G/DL (3.4-5.0) L Globulin 3.5 g/dL Albumin/Globulin Ratio 0.8 (1.0-2.7) L Triglycerides Level 157 MG/DL (0-200) Cholesterol Level 118 MG/DL (< 200) LDL Cholesterol 76 mg/dL (<100) HDL Cholesterol 25 MG/DL (40-60) L Cholesterol/HDL Ratio 4.7 (3.3-4.4) H CA 125 Antigen Pending Height (Feet): 5 Height (Inches): 8.00 Weight (Pounds): 299 General Appearance: confused, morbidly obese Cardiovascular: normal rate Respiratory/Chest: normal breath sounds, no respiratory distress Abdominal Exam: normal bowel sounds, non tender, soft Vinita Wood N.P. Mar 04, 2017 13:27 EUGENE TIMMONS Mar 05, 2017 15:16
--- NOTE | 2017-03-04 14:54 | Consultation ---
History of Present Illness General Date patient seen: Mar 04, 2017 Time patient seen: 14:52 Chief Complaint: Abdominal Pain Present Illness HPI 76 y/o F with hx of DM, HTN, asthma, COPD, peripheral neuropathy, Protein C/S deficiency c/w PE on coumadin, s/p IVC ligation, chronic pain, multiple joint OA , fibromyalgia, obesity, s/p cholecystectomy, s/p hysterectomy presents to ED on 03/03 with 1 day of epigastric abd pain that started shortly after eating; described as sharp, 8/10 intensity, non radiating. Associate with multiple emesis(initially non-bloody, then noticed small amount of blood), diarrhea, melena. Found to have anemia, supratherpeutic INR and leukocytosis. Also urinary incontinence Denies f/c, CP, SOB. ID consulted for leukocytosis. Afebrile. Per family members, patient is very high functioning,. 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 However for the alst few days patient has been confused, restless. Allergies: Coded Allergies: ACETAMINOPHEN (Verified Allergy, Severe, ITCHING, 11/10/11) ASPIRIN (Verified Allergy, Severe, Rash, 11/10/11) DULOXETINE HCL (Verified Allergy, Severe, Rash, 11/10/11) HYDROCODONE BIT (Verified Allergy, Severe, ITCHING, 11/10/11) IBUPROFEN (Verified Allergy, Severe, SWELLING, 11/10/11) MORPHINE (Verified Allergy, Severe, ITCHING, 11/10/11) PENICILLINS (Verified Allergy, Severe, ANAPHYLAXIS, 11/10/11) PROPYLTHIOURACIL (Verified Allergy, Severe, Rash, 11/10/11) ISOSORBIDE (Verified Allergy, Intermediate, Rash, 05/10/12) COPIED FROM NONCODED SECTION "ISOSORDIL" LEVOFLOXACIN (Verified Allergy, Intermediate, Hives, 05/14/12) MOXIFLOXACIN (Verified Adverse Reaction, Severe, hives, hoarse voice, ) Hives right upper arm, hoarse voice upon first exposure, MD stopped immediately. Oral Benadryl administered, reversed reaction. LEVOTHYROXINE SOD *RETIRED-02/06/12 (Verified Adverse Reaction, TACHYCARDIA, 11/10/11) Uncoded Allergies: IV DYE, IODINE CONTAINING CONTRAST (Allergy, Severe, ANAPHYLAXIS, 11/10/11) Medication History Scheduled Clindamycin Hcl (Clindamycin Hcl), 300 MG PO TID, (Reported) Furosemide* (Lasix*), 40 MG PO DAILY, (Reported) Metformin Hcl* (Glucophage*), 850 MG PO DAILY, (Reported) Oxycodone Hcl* (Oxycodone Hcl*), 5 MG PO PRN, (Reported) Oxycodone Hcl* (Oxycodone Hcl*), 10 MG PO PRN, (Reported) Potassium Chloride (Klor-Con M20), 40 MEQ PO DAILY, (Reported) Pregabalin (Lyrica), 150 MG PO Q6HR, (Reported) Tapentadol Hcl (Nucynta), 50 MG PO Q6HR, (Reported) Thyroid,Pork (Iva Thyroid), 120 MG PO DAILY, (Reported) Warfarin Sod* (Coumadin*), 10 MG PO DAILY, (Reported) Patient History Healthcare decision maker Resuscitation status Advanced Directive on File Patient History Narrative PHx as above SH:Denies: The patient reported that she lives with her granddaughter/ daughter. Denies history of illicit drug abuse or alcohol abuse. prior tobacco abuse- stopped 20 years ago. PhD. 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: non contributory Review of Systems ROS Narrative unable to botain as patient confused Physical Exam Physical Exam Narrative General Appearance: restless non-toxic, mild distress, obese HEENT: normocephalic, atraumatic, bilateral eye PERRL Neck: full range of motion, supple/symm/no masses Respiratory: chest non-tender, lungs clear, normal breath sounds Gastrointestinal: normal bowel sounds, soft, non-distended, no guarding, no rebound, tenderness - epigastric Musculoskeletal: non tender, no erythematous joints Neurologic: restless, confused Skin: normal color, no rash, warm/dry Last 24 Hour Vital Signs Date Time Temp Pulse Resp B/P (MAP) Pulse Ox O2 Delivery O2 Flow Rate FiO2 03/04/17 13:20 73/46 03/04/17 13:17 78/41 03/04/17 12:38 98.0 113 22 126/65 92 Room Air 03/04/17 09:22 Room Air 21 03/04/17 09:19 Room Air 21 03/04/17 08:30 98.4 115 22 114/56 92 Nasal Cannula 2.0 03/04/17 02:40 98.2 03/04/17 02:20 104 03/04/17 00:00 97.7 106 20 159/71 96 Room Air 2.0 03/03/17 21:00 100 03/03/17 20:00 97.9 103 90/66 95 Simple Mask 3.0 03/03/17 20:00 104 03/03/17 16:00 108 03/03/17 16:00 98.4 108 20 110/65 90 Room Air Intake and Output 03/04/17 03/05/17 19:00 07:00 # Voids 6 # Bowel Movements 1 Laboratory Tests Test 03/04/17 07:30 White Blood Count 15.8 K/UL (4.8-10.8) #H Red Blood Count 3.03 M/UL (4.20-5.40) L Hemoglobin 7.6 G/DL (12.0-16.0) L Hematocrit 24.8 % (37.0-47.0) L Mean Corpuscular Volume 82 FL (80-99) Mean Corpuscular Hemoglobin 25.1 PG (27.0-31.0) L Mean Corpuscular Hemoglobin Concent 30.7 G/DL (32.0-36.0) L Red Cell Distribution Width 17.3 % (11.6-14.8) H Platelet Count 311 K/UL (150-450) Mean Platelet Volume 7.8 FL (6.5-10.1) Neutrophils (%) (Auto) % (45.0-75.0) Lymphocytes (%) (Auto) % (20.0-45.0) Monocytes (%) (Auto) % (1.0-10.0) Eosinophils (%) (Auto) % (0.0-3.0) Basophils (%) (Auto) % (0.0-2.0) Differential Total Cells Counted 100 Neutrophils % (Manual) 83 % (45-75) H Lymphocytes % (Manual) 12 % (20-45) L Monocytes % (Manual) 5 % (1-10) Eosinophils % (Manual) 0 % (0-3) Basophils % (Manual) 0 % (0-2) Band Neutrophils 0 % (0-8) Platelet Estimate Adequate Platelet Morphology Normal Hypochromasia 1+ Anisocytosis 1+ Prothrombin Time 21.8 SEC (9.30-11.50) H Prothromb Time International Ratio 2.1 (0.9-1.1) H D-Dimer < 0.19 mg/L FEU Lupus Anticoagulant Pending Lupus Anticoagulant PTT Baseline Pending Lupus Anticoag DRVVT Screen Ratio Pending DRVVT Confirmation Interpretation Pending Hexagonal Phase Comment Pending Protein C Activity Pending Protein S Activity Pending Factor V Mutation Pending Sodium Level 149 MMOL/L (136-145) H Potassium Level 4.5 MMOL/L (3.5-5.1) Chloride Level 116 MMOL/L (98-107) H Carbon Dioxide Level 26 MMOL/L (21-32) Anion Gap 7 mmol/L (5-15) Blood Urea Nitrogen 54 mg/dL (7-18) H Creatinine 1.1 MG/DL (0.55-1.30) Estimat Glomerular Filtration Rate mL/min (>60) Glucose Level 176 MG/DL (74-106) H Hemoglobin A1c 9.1 % (4.3-6.0) H Calcium Level 10.0 MG/DL (8.5-10.1) Total Bilirubin 0.6 MG/DL (0.2-1.0) Aspartate Amino Transf (AST/SGOT) 17 U/L (15-37) Alanine Aminotransferase (ALT/SGPT) 18 U/L (12-78) Alkaline Phosphatase 53 U/L (46-116) Lactate Dehydrogenase 189 U/L (81-234) Troponin I 0.013 ng/mL (0.000-0.056) Total Protein 6.3 G/DL (6.4-8.2) L Albumin 2.8 G/DL (3.4-5.0) L Globulin 3.5 g/dL Albumin/Globulin Ratio 0.8 (1.0-2.7) L Triglycerides Level 157 MG/DL (0-200) Cholesterol Level 118 MG/DL (< 200) LDL Cholesterol 76 mg/dL (<100) HDL Cholesterol 25 MG/DL (40-60) L Cholesterol/HDL Ratio 4.7 (3.3-4.4) H CA 125 Antigen Pending Height (Feet): 5 Height (Inches): 8.00 Weight (Pounds): 299 Medications Current Medications Medications (Trade) Dose Ordered Sig/Celsa Route PRN Reason Start Time Stop Time Status Last Admin Dose Admin Albuterol Sulfate (Proventil MDI) 2 puff Q4H PRN INH Shortness of Breath 03/03/17 11:30 04/02/17 11:29 Dextrose/ Electrolytes 1,000 ml @ 125 mls/hr Q8H IV 03/03/17 11:15 04/02/17 11:14 03/03/17 19:19 Hydromorphone HCl (Dilaudid) 1 mg Q4H PRN IVP Moderate Pain (Pain Scale 4-6) 03/04/17 08:45 03/11/17 08:44 03/04/17 14:30 Lorazepam (Ativan 2mg/ml 1ml) 1 mg Q8H PRN IVP For Anxiety 03/03/17 18:15 03/10/17 18:14 03/03/17 18:51 Ondansetron HCl (Zofran) 4 mg Q6H PRN IVP Nausea & Vomiting 03/03/17 10:30 04/02/17 10:29 03/03/17 23:42 Pantoprazole 80 mg/Dextrose 250 ml @ 25 mls/hr Q10H IV 03/04/17 13:00 04/03/17 12:59 Salmeterol Xinafoate/ Fluticasone (Advair 100/50 Diskus) 2 puffs TWICE A DAY INH 03/03/17 18:00 04/02/17 17:59 Assessment/Plan Assessment/Plan Abx: None Assesment: UGIB Leukocytosis- likely reactive to above- r/o aspiration, r/o intrabdominal infection, r/o UTI given urinary incontinence -afebrile Acute Encephalopathy - r/o intracranial bleeding Anemia Supratherapeutic INR Hx of L elbow MRSA infection DM, HTN, asthma, COPD, peripheral neuropathy, Protein C/S deficiency c/w PE on coumadin, s/p IVC ligation, chronic pain, multiple joint OA, fibromyalgia, obesity, s/p cholecystectomy, s/p hysterectomy Plan: -Continue to monitor off abx unless febrile -Obtain CXR, u/a with reflex, Bcx x2 -f/u CT abd/p, head -for EGD tomorrow -Monitor CBC/BMP, temperatures Thank you for this consultation. will continue to follow along with you. Discussed with RN. Ashley Smith M.D. Mar 04, 2017 14:53
[2017-03-04] MEDS ORDERED: Haloperidol 5mg/ml Inj IM PRN ×3 (16:30→22:00)
[2017-03-04] MEDS ORDERED: D5 1/4NS 1000ml 1,000 ML IV SCH (16:45)
[2017-03-04] MEDS ORDERED: D5 1/2NS 1,000 ML IV ONE (18:00)
[2017-03-04] MEDS ORDERED: Albuterol 90mcg Inhaler 8gm INH PRN ×2 (19:00→22:00)
[2017-03-04] MEDS ORDERED: D5 1/2NS 1,000 ML IV SCH (19:00)
[2017-03-04] MEDS ORDERED: LORazepam Inj 2mg/ml 1ml IVP PRN ×2 (19:00→22:00)
[2017-03-04] MEDS ORDERED: D5 1/2NS w/KCL 10meq 1,000 ML IV SCH ×2 (19:15→22:00)
[2017-03-04] MEDS ORDERED: Morphine Sulfate 2mg/ml Inj IVP PRN ×2 (19:45→22:00)
[2017-03-04 19:53] LABS: APPEARANCE,URINE CLEAR; KETONES,URINE NEGATIVE (NEGATIVE); LEUKOCYTE ESTERASE ,URINE NEGATIVE (NEGATIVE); NITRITE,URINE NEGATIVE (NEGATIVE); PH,URINE 5 (4.5-8.0); PROTEIN,URINE NEGATIVE (NEGATIVE); UROBILINOGEN,URINE NORMAL MG/DL (0.0-1.0)
[2017-03-04] MEDS ORDERED: Phytonadione 10 MG in D5W 55 ML IVPB ONE ×2 (20:30→23:00)
[2017-03-04] MEDS ORDERED: Advair 100/50 Inhaler - 14 dose INH SCH ×2 (22:00)
[2017-03-04 22:21] LABS: URIC ACID 6.6 MG/DL (2.6-7.2)
--- NOTE | 2017-03-04 22:52 | Pulmonolgy Critical Care Note ---
Critical Care - Asmt/Plan Assessment/Plan: Acute Upper gastrointestinal bleeding. Hypercoagulation state. Protein C and protein S deficiency. Multiple joint osteoarthritis. Chronic pain, fibromyalgia. Anemia acute on chronic Leukocytosis with no evidence of active acute infection. Hematuria. Respiratory: monitor respiratory rate Cardiac: continue to monitor HR/BP Renal: F/U I&O Endocrine: monitor blood sugar Hematologic: monitor H/H Disposition: transfer to - telemetry Time Spent (Minutes): 40 Notes Reviewed: piano regulator, GI Discussed with: nurses, consultants, case operator, family member Critical Care - Objective Last 24 Hour Vital Signs Date Time Temp Pulse Resp B/P (MAP) Pulse Ox O2 Delivery O2 Flow Rate FiO2 03/04/17 22:00 95 24 118/54 94 Nasal Cannula 3.0 03/04/17 21:00 101 22 123/70 96 Nasal Cannula 3.0 03/04/17 20:00 99.0 107 20 147/50 95 Nasal Cannula 3.0 03/04/17 20:00 107 03/04/17 19:18 109 03/04/17 16:00 117 03/04/17 16:00 99.5 102 20 96/49 91 Nasal Cannula 03/04/17 13:20 73/46 03/04/17 13:17 78/41 03/04/17 12:38 98.0 113 22 126/65 92 Room Air 03/04/17 12:00 122 03/04/17 09:22 Room Air 21 03/04/17 09:19 Room Air 21 03/04/17 08:30 98.4 115 22 114/56 92 Nasal Cannula 2.0 03/04/17 08:00 114 03/04/17 02:40 98.2 03/04/17 02:20 104 03/04/17 00:00 97.7 106 20 159/71 96 Room Air 2.0 Status: awake Condition: improving HEENT: atraumatic Neck: full ROM Lungs: clear Heart: HR/BP stable, regular Abdomen: soft, non-tender, active bowel sounds Extremities: no C/C/E Decubiti: none Blood Sugars: BS controlled Critical Care - Subjective ROS Limited/Unobtainable: No Condition: improving, stable IV Access: peripheral EKG Rhythm: Sinus Rhythm FI02: 21 Sputum Amount: None I&O: Intake and Output 03/04/17 03/05/17 19:00 07:00 Output Total 300 ml 330 ml Balance -300 ml -330 ml Output Urine Total 300 ml 330 ml # Voids 6 # Bowel Movements 2 ELO DE LA CRUZ Mar 04, 2017 22:52
--- NOTE | 2017-03-04 23:02 | Consultation ---
History of Present Illness General Chief Complaint: Abdominal Pain Present Illness HPI The patient is a 76-year-old, female, presented with the protracted nausea and vomitus for the day before the admission. The patient reported that the contents of the vomitus included red fresh blood. the pt was severely agitated. six family members were in the room and she was confused, yelling and attempting to pull on her cath. the pts daughter agreed to haldol after she asked me to speak with the family member who was a psychiatrist Allergies: Coded Allergies: ACETAMINOPHEN (Verified Allergy, Severe, ITCHING, 11/10/11) ASPIRIN (Verified Allergy, Severe, Rash, 11/10/11) DULOXETINE HCL (Verified Allergy, Severe, Rash, 11/10/11) HYDROCODONE BIT (Verified Allergy, Severe, ITCHING, 11/10/11) IBUPROFEN (Verified Allergy, Severe, SWELLING, 11/10/11) MORPHINE (Verified Allergy, Severe, ITCHING, 11/10/11) PENICILLINS (Verified Allergy, Severe, ANAPHYLAXIS, 11/10/11) PROPYLTHIOURACIL (Verified Allergy, Severe, Rash, 11/10/11) ISOSORBIDE (Verified Allergy, Intermediate, Rash, 05/10/12) COPIED FROM NONCODED SECTION "ISOSORDIL" LEVOFLOXACIN (Verified Allergy, Intermediate, Hives, 05/14/12) MOXIFLOXACIN (Verified Adverse Reaction, Severe, hives, hoarse voice, ) Hives right upper arm, hoarse voice upon first exposure, MD stopped immediately. Oral Benadryl administered, reversed reaction. LEVOTHYROXINE SOD *RETIRED-02/06/12 (Verified Adverse Reaction, TACHYCARDIA, 11/10/11) Uncoded Allergies: IV DYE, IODINE CONTAINING CONTRAST (Allergy, Severe, ANAPHYLAXIS, 11/10/11) Medication History Scheduled Clindamycin Hcl (Clindamycin Hcl), 300 MG PO TID, (Reported) Furosemide* (Lasix*), 40 MG PO DAILY, (Reported) Metformin Hcl* (Glucophage*), 850 MG PO DAILY, (Reported) Oxycodone Hcl* (Oxycodone Hcl*), 5 MG PO PRN, (Reported) Oxycodone Hcl* (Oxycodone Hcl*), 10 MG PO PRN, (Reported) Potassium Chloride (Klor-Con M20), 40 MEQ PO DAILY, (Reported) Pregabalin (Lyrica), 150 MG PO Q6HR, (Reported) Tapentadol Hcl (Nucynta), 50 MG PO Q6HR, (Reported) Thyroid,Pork (Mcgraw Thyroid), 120 MG PO DAILY, (Reported) Warfarin Sod* (Coumadin*), 10 MG PO DAILY, (Reported) Patient History Limited by: medical condition History Provided By: Patient, Family Member, Medical Record, PMD Healthcare decision maker Resuscitation status Advanced Directive on File Past Medical/Surgical History Past Medical/Surgical History: (1) Anemia due to acute blood loss (2) Encephalopathy acute (3) Upper GI bleed Review of Systems Psychiatric: Reports: prior hx, depressed feelings, emotional problems, hallucinations Physical Exam General Appearance: no apparent distress, confused, agitated, morbidly obese Neurologic: alert, disoriented, unresponsiveness Last 24 Hour Vital Signs Date Time Temp Pulse Resp B/P (MAP) Pulse Ox O2 Delivery O2 Flow Rate FiO2 03/04/17 22:00 Nasal Cannula 2.0 28 03/04/17 22:00 95 24 118/54 94 Nasal Cannula 3.0 03/04/17 21:00 101 22 123/70 96 Nasal Cannula 3.0 03/04/17 20:00 97 Nasal Cannula 2.0 28 03/04/17 20:00 99.0 107 20 147/50 95 Nasal Cannula 3.0 03/04/17 20:00 107 03/04/17 19:18 109 03/04/17 16:00 117 03/04/17 16:00 99.5 102 20 96/49 91 Nasal Cannula 03/04/17 13:20 73/46 03/04/17 13:17 78/41 03/04/17 12:38 98.0 113 22 126/65 92 Room Air 03/04/17 12:00 122 03/04/17 09:22 Room Air 21 03/04/17 09:19 Room Air 21 03/04/17 08:30 98.4 115 22 114/56 92 Nasal Cannula 2.0 03/04/17 08:00 114 03/04/17 02:40 98.2 03/04/17 02:20 104 03/04/17 00:00 97.7 106 20 159/71 96 Room Air 2.0 Intake and Output 03/04/17 03/05/17 19:00 07:00 Output Total 300 ml 330 ml Balance -300 ml -330 ml Output Urine Total 300 ml 330 ml # Voids 6 # Bowel Movements 2 Laboratory Tests Test 03/04/17 07:30 03/04/17 17:00 03/04/17 18:38 White Blood Count 15.8 K/UL (4.8-10.8) #H Red Blood Count 3.03 M/UL (4.20-5.40) L Hemoglobin 7.6 G/DL (12.0-16.0) L Hematocrit 24.8 % (37.0-47.0) L Mean Corpuscular Volume 82 FL (80-99) Mean Corpuscular Hemoglobin 25.1 PG (27.0-31.0) L Mean Corpuscular Hemoglobin Concent 30.7 G/DL (32.0-36.0) L Red Cell Distribution Width 17.3 % (11.6-14.8) H Platelet Count 311 K/UL (150-450) Mean Platelet Volume 7.8 FL (6.5-10.1) Neutrophils (%) (Auto) % (45.0-75.0) Lymphocytes (%) (Auto) % (20.0-45.0) Monocytes (%) (Auto) % (1.0-10.0) Eosinophils (%) (Auto) % (0.0-3.0) Basophils (%) (Auto) % (0.0-2.0) Differential Total Cells Counted 100 Neutrophils % (Manual) 83 % (45-75) H Lymphocytes % (Manual) 12 % (20-45) L Monocytes % (Manual) 5 % (1-10) Eosinophils % (Manual) 0 % (0-3) Basophils % (Manual) 0 % (0-2) Band Neutrophils 0 % (0-8) Platelet Estimate Adequate Platelet Morphology Normal Hypochromasia 1+ Anisocytosis 1+ Prothrombin Time 21.8 SEC (9.30-11.50) H Prothromb Time International Ratio 2.1 (0.9-1.1) H D-Dimer < 0.19 mg/L FEU Lupus Anticoagulant Pending Lupus Anticoagulant PTT Baseline Pending Lupus Anticoag DRVVT Screen Ratio Pending DRVVT Confirmation Interpretation Pending Hexagonal Phase Comment Pending Protein C Activity Pending Protein S Activity Pending Factor V Mutation Pending Sodium Level 149 MMOL/L (136-145) H Potassium Level 4.5 MMOL/L (3.5-5.1) Chloride Level 116 MMOL/L (98-107) H Carbon Dioxide Level 26 MMOL/L (21-32) Anion Gap 7 mmol/L (5-15) Blood Urea Nitrogen 54 mg/dL (7-18) H Creatinine 1.1 MG/DL (0.55-1.30) Estimat Glomerular Filtration Rate mL/min (>60) Glucose Level 176 MG/DL (74-106) H Hemoglobin A1c 9.1 % (4.3-6.0) H Uric Acid 6.6 MG/DL (2.6-7.2) Calcium Level 10.0 MG/DL (8.5-10.1) Total Bilirubin 0.6 MG/DL (0.2-1.0) Aspartate Amino Transf (AST/SGOT) 17 U/L (15-37) Alanine Aminotransferase (ALT/SGPT) 18 U/L (12-78) Alkaline Phosphatase 53 U/L (46-116) Lactate Dehydrogenase 189 U/L (81-234) Total Creatine Kinase 34 U/L (26-308) Troponin I 0.013 ng/mL (0.000-0.056) Total Protein 6.3 G/DL (6.4-8.2) L Albumin 2.8 G/DL (3.4-5.0) L Globulin 3.5 g/dL Albumin/Globulin Ratio 0.8 (1.0-2.7) L Triglycerides Level 157 MG/DL (0-200) Cholesterol Level 118 MG/DL (< 200) LDL Cholesterol 76 mg/dL (<100) HDL Cholesterol 25 MG/DL (40-60) L Cholesterol/HDL Ratio 4.7 (3.3-4.4) H CA 125 Antigen Pending Stool Occult Blood Pending Urine Color Pale yellow Urine Appearance Clear Urine pH 5 (4.5-8.0) Urine Specific [place] 1.010 (1.005-1.035) Urine Protein Negative (NEGATIVE) Urine Glucose (UA) 1+ (NEGATIVE) H Urine Ketones Negative (NEGATIVE) Urine Occult Blood Negative (NEGATIVE) Urine Nitrite Negative (NEGATIVE) Urine Bilirubin Negative (NEGATIVE) Urine Urobilinogen Normal MG/DL (0.0-1.0) Urine Leukocyte Esterase Negative (NEGATIVE) Height (Feet): 5 Height (Inches): 8.00 Weight (Pounds): 299 Medications Current Medications Medications (Trade) Dose Ordered Sig/Celsa Route PRN Reason Start Time Stop Time Status Last Admin Dose Admin Albuterol Sulfate (Proventil MDI) 2 puff Q4H PRN INH Shortness of Breath 03/04/17 22:00 04/02/17 21:59 Dextrose/ Electrolytes 1,000 ml @ 125 mls/hr Q8H IV 03/04/17 22:00 04/02/17 21:59 03/04/17 22:24 Haloperidol Lactate (Haldol) 5 mg Q6H PRN IM Agitation 03/04/17 22:00 04/03/17 21:59 03/04/17 22:38 Hydromorphone HCl (Dilaudid) 1 mg Q4H PRN IVP Moderate Pain (Pain Scale 4-6) 03/04/17 22:00 03/11/17 21:59 Lorazepam (Ativan 2mg/ml 1ml) 1 mg Q8H PRN IVP For Anxiety 03/04/17 22:00 03/11/17 21:59 Morphine Sulfate (Morphine Sulfate) 2 mg Q4H PRN IVP For Severe Pain Scale 7-10 03/04/17 22:00 03/11/17 21:59 Ondansetron HCl (Zofran) 4 mg Q6H PRN IVP Nausea & Vomiting 03/04/17 22:00 04/03/17 21:59 Pantoprazole 80 mg/Dextrose 250 ml @ 25 mls/hr Q10H IV 03/04/17 22:30 04/03/17 22:29 03/04/17 22:25 Phytonadione 10 mg/Dextrose 56 ml @ 112 mls/hr ONCE ONCE IVPB 03/04/17 23:00 03/04/17 23:29 Salmeterol Xinafoate/ Fluticasone (Advair 100/50 Diskus) 2 puffs Q12HRT INH 03/04/17 22:00 04/03/17 21:59 Assessment/Plan Status: unchanged Assessment/Plan encephalopathhy haldol 5mg q6 hr prn Daisha Stanley M.D. Mar 04, 2017 23:02
[2017-03-05] VITALS: BP 112/68
[2017-03-05 00:02] VITALS: BP 92/78
[2017-03-05 01:00] VITALS: BP 135/58
[2017-03-05 02:00] VITALS: BP 151/61
[2017-03-05 03:00] VITALS: BP 115/62
[2017-03-05] MEDS ORDERED: Tubing IV Secondary IV ONE (03:29)
[2017-03-05 08:21] LABS: CA 125 170.5 U/mL (0.0-38.1)
--- NOTE | 2017-03-05 09:22 | General Progress Note ---
Assessment/Plan Assessment/Plan ASSESSMENT: 1. Upper gastrointestinal bleeding. S/p blood transfusion due to drop in H/H -> the patient requires egd/colo, pending per GI service. 2. Hypercoagulation state. 3. Protein C and protein S deficiency. 4. Multiple joint osteoarthritis. 5. Chronic pain, fibromyalgia. 6. Anemia, baseline unknown. 7. Leukocytosis with no evidence of active acute infection. 8. Hematuria. 9. Gastrointestinal and deep vein thrombosis prophylaxes. Subjective Date patient seen: Mar 04, 2017 ROS Limited/Unobtainable: Yes Allergies: Coded Allergies: ACETAMINOPHEN (Verified Allergy, Severe, ITCHING, 11/10/11) ASPIRIN (Verified Allergy, Severe, Rash, 11/10/11) DULOXETINE HCL (Verified Allergy, Severe, Rash, 11/10/11) HYDROCODONE BIT (Verified Allergy, Severe, ITCHING, 11/10/11) IBUPROFEN (Verified Allergy, Severe, SWELLING, 11/10/11) MORPHINE (Verified Allergy, Severe, ITCHING, 11/10/11) PENICILLINS (Verified Allergy, Severe, ANAPHYLAXIS, 11/10/11) PROPYLTHIOURACIL (Verified Allergy, Severe, Rash, 11/10/11) ISOSORBIDE (Verified Allergy, Intermediate, Rash, 05/10/12) COPIED FROM NONCODED SECTION "ISOSORDIL" LEVOFLOXACIN (Verified Allergy, Intermediate, Hives, 05/14/12) MOXIFLOXACIN (Verified Adverse Reaction, Severe, hives, hoarse voice, ) Hives right upper arm, hoarse voice upon first exposure, MD stopped immediately. Oral Benadryl administered, reversed reaction. LEVOTHYROXINE SOD *RETIRED-02/06/12 (Verified Adverse Reaction, TACHYCARDIA, 11/10/11) Uncoded Allergies: IV DYE, IODINE CONTAINING CONTRAST (Allergy, Severe, ANAPHYLAXIS, 11/10/11) Objective Last 24 Hour Vital Signs Date Time Temp Pulse Resp B/P (MAP) Pulse Ox O2 Delivery O2 Flow Rate FiO2 03/05/17 03:00 102 24 115/62 96 Nasal Cannula 3.0 03/05/17 02:00 93 24 151/61 96 Nasal Cannula 3.0 03/05/17 01:00 92 25 135/58 97 Nasal Cannula 3.0 03/05/17 00:02 106 27 92/78 96 Nasal Cannula 3.0 03/05/17 00:00 99.3 100 20 112/68 95 Nasal Cannula 3.0 03/05/17 00:00 104 03/04/17 23:04 Nasal Cannula 03/04/17 23:03 102 24 94 Nasal Cannula 2.0 28 03/04/17 23:00 106 27 92/78 96 Nasal Cannula 3.0 03/04/17 22:00 Nasal Cannula 2.0 28 03/04/17 22:00 95 24 118/54 94 Nasal Cannula 3.0 03/04/17 21:00 101 22 123/70 96 Nasal Cannula 3.0 03/04/17 20:00 97 Nasal Cannula 2.0 28 03/04/17 20:00 99.0 107 20 147/50 95 Nasal Cannula 3.0 03/04/17 20:00 107 03/04/17 19:18 109 03/04/17 16:00 117 03/04/17 16:00 99.5 102 20 96/49 91 Nasal Cannula 03/04/17 13:20 73/46 03/04/17 13:17 78/41 03/04/17 12:38 98.0 113 22 126/65 92 Room Air 03/04/17 12:00 122 03/04/17 09:22 Room Air 21 Laboratory Tests 03/04/17 17:00: Stool Occult Blood [Pending] 03/04/17 18:38: Urine Color Pale yellow, Urine Appearance Clear, Urine pH 5, Urine Specific [place] 1.010, Urine Protein Negative, Urine Glucose (UA) 1+H, Urine Ketones Negative, Urine Occult Blood Negative, Urine Nitrite Negative, Urine Bilirubin Negative, Urine Urobilinogen Normal, Urine Leukocyte Esterase Negative Height (Feet): 5 Height (Inches): 8.00 Weight (Pounds): 299 General Appearance: agitated Graham Tyson Mar 05, 2017 09:22
--- NOTE | 2017-03-05 09:31 | Consultation ---
DATE OF CONSULTATION: 03/04/2017 TIME SEEN: At 0830 hours. REFERRING PHYSICIAN: Samantha Blood M.D. CONSULTING PHYSICIAN: Gabbie Bell M.D. PHYSICIAN VITICULTURIST: Sim Christopher CHIEF COMPLAINT: Abdominal pain. HISTORY OF PRESENT ILLNESS: This is a 76-year-old female, who is being seen on the telemetry floor of [facility]. The patient was admitted under the care of Dr. Blood complaining of severe abdominal pain, found to have vomitus of red fresh blood which was very dark, diarrhea, and severe abdominal pain rating 8/10, describing as sharp stabbing pain. The patient is taking oxycodone 5 to 10 mg tablets as needed for pain as an outpatient 200 tablets of 5 mg as an outpatient with Nucynta 50 mg. Upon admission, the patient was started on Dilaudid 1 mg, 2 mg, and 3 mg IV as needed for severe pain. At this time, the patient will be going for CT scan of the abdominal area as per the operations mgr, having issues with IV access. We will change the Dilaudid to subcutaneous as needed and discontinue the 3 mg at this time. Continue the 1 mg for severe pain. Advised the nurse to send the patient down for CT scan as soon as possible. The patient also found to have high white blood cell count being 14 and hemoglobin being 10. At this time, the patient is lying in the bed waiting for IV access, no signs of pain or distress noted. PAST MEDICAL HISTORY: Protein C and S deficiency, GERD, multiple joint osteoarthritis, fibromyalgia, peripheral neuropathy, chronic pain, diabetes mellitus, hypertension, asthma, COPD, and obesity. PAST SURGICAL HISTORY: Cholecystectomy, IVC ligation, and hysterectomy. SOCIAL HISTORY: No history of drug abuse, smoking tobacco, or alcohol abuse. ALLERGIES: Acetaminophen, aspirin, duloxetine, hydrocodone, ibuprofen, IV iodine, levofloxacin, levothyroxine, morphine, meloxicam, and penicillin. REVIEW OF SYSTEMS: Denies rash, fevers, chills, sweating, dizziness, drowsiness, blurred vision, sore throat, or change in her weight. No shortness of breath, chest pain, palpitations, or cough. No nausea, vomiting, diarrhea, or blood in the stool or urine. No bowel or bladder incontinence. She is complaining of severe abdominal pain. PHYSICAL EXAMINATION: GENERAL: Alert, awake, and oriented. VITAL SIGNS: Blood pressure 159/71, oxygen saturation 98%, respiratory rate is 20, and temperature is 97.8 degrees Fahrenheit. Height is 5 feet 8 inches. Weight is pounds. HEENT: PERRLA. NECK: Range of motion is full in all directions. No tenderness to paracervical muscles. No adenopathy. LUNGS: Decreased breath sounds bilaterally. HEART: Regular. ABDOMEN: Obese. BACK: Range of motion is decreased in flexion and extension. EXTREMITIES: Upper extremity range of motion is full in all directions. No cyanosis. No clubbing. No edema. Sensory is intact. Reflexes are unobtainable. No adenopathy. Lower extremity range of motion is decreased due to the patient's clinical condition. No cyanosis. No clubbing. No edema noted. Sensory is intact. Reflexes are unobtainable. No adenopathy. ASSESSMENT AND PLAN: This is a 76-year-old female with intractable abdominal pain, gastrointestinal bleed, multiple joint osteoarthritis and multiple joint pain, and fibromyalgia. The patient will be discontinued off the Dilaudid 2 mg IV. We will change the Dilaudid 2 mg to subcutaneous as needed for severe pain. Continue Dilaudid 1 mg IV every four hours as needed for moderate pain. Advised the patient's nurse to send the patient down for CT scan of the abdominal area as per the operations mgr and inform Dr. Blood. The patient was discussed with Dr. Bell and Dr. Bell concurred. We will follow the patient. Thank you very much for the courtesy of this consultation. Gabbie Bell M.D. TOÑITO Christopher DR: Matti JOB#: [id number] CC: LIYA
--- NOTE | 2017-03-05 18:02 | General Progress Note ---
Assessment/Plan Status: unchanged Subjective Neurologic/Psychiatric: Reports: anxiety, depressed, emotional problems Allergies: Coded Allergies: ACETAMINOPHEN (Verified Allergy, Severe, ITCHING, 11/10/11) ASPIRIN (Verified Allergy, Severe, Rash, 11/10/11) DULOXETINE HCL (Verified Allergy, Severe, Rash, 11/10/11) HYDROCODONE BIT (Verified Allergy, Severe, ITCHING, 11/10/11) IBUPROFEN (Verified Allergy, Severe, SWELLING, 11/10/11) MORPHINE (Verified Allergy, Severe, ITCHING, 11/10/11) PENICILLINS (Verified Allergy, Severe, ANAPHYLAXIS, 11/10/11) PROPYLTHIOURACIL (Verified Allergy, Severe, Rash, 11/10/11) ISOSORBIDE (Verified Allergy, Intermediate, Rash, 05/10/12) COPIED FROM NONCODED SECTION "ISOSORDIL" LEVOFLOXACIN (Verified Allergy, Intermediate, Hives, 05/14/12) MOXIFLOXACIN (Verified Adverse Reaction, Severe, hives, hoarse voice, ) Hives right upper arm, hoarse voice upon first exposure, MD stopped immediately. Oral Benadryl administered, reversed reaction. LEVOTHYROXINE SOD *RETIRED-02/06/12 (Verified Adverse Reaction, TACHYCARDIA, 11/10/11) Uncoded Allergies: IV DYE, IODINE CONTAINING CONTRAST (Allergy, Severe, ANAPHYLAXIS, 11/10/11) Objective Last 24 Hour Vital Signs Date Time Temp Pulse Resp B/P (MAP) Pulse Ox O2 Delivery O2 Flow Rate FiO2 03/05/17 03:00 102 24 115/62 96 Nasal Cannula 3.0 03/05/17 02:00 93 24 151/61 96 Nasal Cannula 3.0 03/05/17 01:00 92 25 135/58 97 Nasal Cannula 3.0 03/05/17 00:02 106 27 92/78 96 Nasal Cannula 3.0 03/05/17 00:00 99.3 100 20 112/68 95 Nasal Cannula 3.0 03/05/17 00:00 104 03/04/17 23:04 Nasal Cannula 03/04/17 23:03 102 24 94 Nasal Cannula 2.0 28 03/04/17 23:00 106 27 92/78 96 Nasal Cannula 3.0 03/04/17 22:00 Nasal Cannula 2.0 28 03/04/17 22:00 95 24 118/54 94 Nasal Cannula 3.0 03/04/17 21:00 101 22 123/70 96 Nasal Cannula 3.0 03/04/17 20:00 97 Nasal Cannula 2.0 28 03/04/17 20:00 99.0 107 20 147/50 95 Nasal Cannula 3.0 03/04/17 20:00 107 03/04/17 19:18 109 Laboratory Tests 03/04/17 18:38: Urine Color Pale yellow, Urine Appearance Clear, Urine pH 5, Urine Specific [place] 1.010, Urine Protein Negative, Urine Glucose (UA) 1+H, Urine Ketones Negative, Urine Occult Blood Negative, Urine Nitrite Negative, Urine Bilirubin Negative, Urine Urobilinogen Normal, Urine Leukocyte Esterase Negative Height (Feet): 5 Height (Inches): 8.00 Weight (Pounds): 299 General Appearance: no apparent distress, alert, confused, agitated, morbidly obese Neurologic: disoriented, depressed affect Daisha Benedict M.D. Mar 05, 2017 18:02
[2017-03-06 12:20] LABS: OTHERS PATHOLOGIST COMMENT
[2017-03-06 12:22] LABS: PROTEIN C ACTIVITY 50 % (73-180); PROTEIN S ACTIVITY 37 % (63-140)
--- NOTE | 2017-03-07 13:25 | Discharge Summary ---
Discharge Summary Hospital Course Date of Admission Mar 03, 2017 at 07:00 Date of Discharge Mar 05, 2017 at 03:30 Admitting Diagnosis upper gi bleed HPI Liliana Acuna is a 76 year old female who was admitted on Mar 03, 2017 at 07:00 for Upper Gi Bleed Hospital Course [id number] Discharge Discharge Disposition Patient was discharged to Acute Care Facility(02) Discharge Diagnoses: Tabitha Anne NP Mar 07, 2017 13:25
--- NOTE | 2017-03-08 05:31 | Discharge Summary 2 SIG ---
DATE OF ADMISSION: 03/03/2017 DATE OF DISCHARGE: 03/05/2017 BRIEF HOSPITAL COURSE: The patient is a 76-year-old female, who presented with protracted nausea and vomiting for one day. The patient reported contents of vomitus include red fresh blood and was also complaining of dark diarrhea since the day prior to admission associated with epigastric abdominal pain. On evaluation at ED, hemoglobin was 10.8 and WBC was 14. GI was consulted for possible GI bleed. She was placed on NPO with IV fluids. She was seen by GI consult and was given Protonix drip. She has a history of hypercoagulable state and is on anticoagulation for Coumadin. Target INR is between 2.0 to 3. She was confused and yelling and was trying to pull out her lines. She was given Haldol. She was eventually transferred to [facility]. FINAL DIAGNOSES: 1. Upper gastrointestinal bleed. 2. Hypercoagulation state. 3. Protein C and protein S deficiency. 4. Multiple joint osteoarthritis. 5. Chronic pain/fibromyalgia. 6. Mild anemia, baseline unknown. 7. Leukocytosis with no evidence of acute infection. 8. Encephalopathy. DISPOSITION: The patient was transferred to an acute care hospital. Samantha Blood M.D. I have been assigned to dictate discharge summary on this account and I was not involved in the patient's management. Tabitha Anne N.P. DR: JAMES JOB#: [id number] CC: LIYA
== END 2017-03-05 03:30 | disposition short-term general hospital (02) | DRG 377 ==
LOC: EMR 02:06 → EDBEDREQ 06:26 → 2E 07:00 → ENRESERV 07:40 → 2W 03-04 18:02 → ICU 03-04 20:18
PROC: 30233N1 Transfusion of Nonautologous Red Blood Cells into Peripheral Vein, Percutaneous Approach (ICD-10-PCS; principal; 2017-03-04)
DX: K92.2 Gastrointestinal hemorrhage, unspecified (principal); G93.40 Encephalopathy, unspecified; D68.59 Other primary thrombophilia; G62.9 Polyneuropathy, unspecified; J44.9 Chronic obstructive pulmonary disease, unspecified; Z68.42 Body mass index [BMI] 45.0-49.9, adult; D62 Acute posthemorrhagic anemia; D64.9 Anemia, unspecified; E11.9 Type 2 diabetes mellitus without complications; E66.9 Obesity, unspecified; K21.9 Gastro-esophageal reflux disease without esophagitis; M19.90 Unspecified osteoarthritis, unspecified site; M79.7 Fibromyalgia; Z88.6 Allergy status to analgesic agent; Z88.1 Allergy status to other antibiotic agents; Z88.8 Allergy status to other drugs, medicaments and biological substances; Z79.01 Long term (current) use of anticoagulants; Z86.711 Personal history of pulmonary embolism
CPT/HCPCS: 36415; 80053; 80061; 81003; 81241; 82270; 82550; 83036; 83615; 83690; 84484; 84550; 85007; 85025; 85303; 85306; 85379; 85610; 85613; 85730; 86304; 86850; 86900; 86901; 86920; 87045; 87324; 93005; 94640; 94760; 99285; J2405